=== PATIENT | female | born 2000 | race Two or more races ===

== ENCOUNTER → 2023-05-17 | Outpatient (CLI) | payer BC | END | disposition home or self-care (01) | LOC: LAB 10:48 | PROVIDERS: ATTEND Obstetrics & Gynecology | DX: Z34.80 Encounter for supervision of other normal pregnancy, unspecified trimester (principal); Z3A.00 Weeks of gestation of pregnancy not specified | CPT/HCPCS: 36415; 84144; 84702 ==

== ENCOUNTER → 2023-05-19 | Outpatient (CLI) | payer BC | END | disposition home or self-care (01) | LOC: LAB 15:31 | PROVIDERS: ATTEND Obstetrics & Gynecology | DX: Z34.80 Encounter for supervision of other normal pregnancy, unspecified trimester (principal); Z3A.00 Weeks of gestation of pregnancy not specified | CPT/HCPCS: 36415; 84702 ==

== ENCOUNTER 2023-11-08 16:00 | Observation (INO) | payer BC | END 2023-11-08 17:12 | disposition home or self-care (01) | LOC: UNDOADMOB 16:00 → LDRP 16:00 → UNDODISOB 17:12 | PROVIDERS: ADMIT Obstetrics & Gynecology; ATTEND Obstetrics & Gynecology | DX: O24.419 Gestational diabetes mellitus in pregnancy, unspecified control (principal); Z3A.30 30 weeks gestation of pregnancy | CPT/HCPCS: 59025; 76818; 81002; 82948; 94760; G0378 ==

== ENCOUNTER 2023-11-15 15:53 | Observation (INO) | payer BC | END 2023-11-15 17:33 | disposition home or self-care (01) | LOC: LDRP 15:53 → UNDOADMOB 15:53 → LDRP 16:13 → UNDODISOB 17:33 | PROVIDERS: ADMIT Obstetrics & Gynecology; ATTEND Obstetrics & Gynecology | DX: O24.419 Gestational diabetes mellitus in pregnancy, unspecified control (principal); Z3A.31 31 weeks gestation of pregnancy | CPT/HCPCS: 59025; 76818; 81002; 82948; 82962; 94760; G0378 ==

== ENCOUNTER 2023-11-22 14:20 | Observation (INO) | payer BC ==
[2023-11-22] MEDS: LACTATED RINGER'S 1,000 ML IV ONE (21:27)
== END 2023-11-22 20:37 | disposition home or self-care (01) ==
LOC: LDRP 15:56
PROVIDERS: ADMIT Obstetrics & Gynecology; ATTEND Obstetrics & Gynecology
DX: O24.419 Gestational diabetes mellitus in pregnancy, unspecified control (principal); O26.893 Other specified pregnancy related conditions, third trimester; M54.9 Dorsalgia, unspecified; R10.2 Pelvic and perineal pain; Z3A.32 32 weeks gestation of pregnancy; Z91.018 Allergy to other foods; Z79.899 Other long term (current) drug therapy
CPT/HCPCS: 59025; 76818; 81002; 82948; 94760; 96360; 96361; G0378

== ENCOUNTER 2023-11-29 14:58 | Observation (INO) | payer BC | END 2023-11-29 16:51 | disposition home or self-care (01) | LOC: LDRP 14:58 → UNDOADMOB 14:58 → LDRP 15:10 | PROVIDERS: ADMIT Obstetrics & Gynecology; ATTEND Obstetrics & Gynecology | DX: O24.419 Gestational diabetes mellitus in pregnancy, unspecified control (principal); Z3A.33 33 weeks gestation of pregnancy; Z91.018 Allergy to other foods | CPT/HCPCS: 76818; G0378; 59025; 81002; 82948 ==

== ENCOUNTER 2023-12-06 15:26 | Observation (INO) | payer BC | END 2023-12-06 17:30 | disposition home or self-care (01) | LOC: LDRP 15:26 | PROVIDERS: ADMIT Obstetrics & Gynecology; ATTEND Obstetrics & Gynecology | DX: O24.419 Gestational diabetes mellitus in pregnancy, unspecified control (principal); O99.891 Other specified diseases and conditions complicating pregnancy; M54.50 Low back pain, unspecified; Z3A.34 34 weeks gestation of pregnancy | CPT/HCPCS: 59025; 76818; 81002; 82948; 94760; G0378 ==

== ENCOUNTER 2023-12-10 19:08 | Observation (INO) | payer BC, OTHER ==
[~2023-12-10] VITALS: Ht 154.9 cm; Wt 87.1 kg
[2023-12-10] MEDS ORDERED: LACTATED RINGER'S 1,000 ML IV ONE (20:00)
== END 2023-12-10 22:08 | disposition home or self-care (01) ==
LOC: EDUNIT# 19:08 → LDRP 19:08
PROVIDERS: ADMIT Obstetrics & Gynecology; ATTEND Obstetrics & Gynecology
DX: O26.893 Other specified pregnancy related conditions, third trimester (principal); R51.9 Headache, unspecified; Z3A.35 35 weeks gestation of pregnancy; Z79.899 Other long term (current) drug therapy
CPT/HCPCS: 59025; 81002; 82948; 82962; 94760; 96360; G0378